=== PATIENT | female | born 1940 | race Hispanic/Latino ===

== ENCOUNTER 2023-02-27 15:24 | Inpatient (IN) | payer OTHER ==
[2023-02-27] MEDS ORDERED: Nitroglycerin 50 MG/250 ML BOT 250 ML ONE (16:07)
[2023-02-27] MEDS ORDERED: Dextrose 50% Abboject 50 ML SYRINGE SLOW IVP PRN (16:42)
[2023-02-27] MEDS ORDERED: Glucagon 1 MG/ML KIT IM PRN (16:42)
[2023-02-27] MEDS ORDERED: Dextrose 5% in Water 1,000 ML IV PRN (16:42)
[2023-02-27 17:33] LABS: Troponin I 0.032 ng/mL (< 0.028)
[2023-02-27 17:58] VITALS: BMI 38.0
[2023-02-27] MEDS: Nitroglycerin 50 MG/250 ML BOT 250 ML IVPB SCH (18:40)
[2023-02-27] MEDS: Atorvastatin Calcium 40 MG TAB PO SCH (21:40)
[2023-02-27] MEDS: Furosemide 40 MG/4 ML VIAL SLOW IVP SCH (21:40)
[2023-02-27] MEDS: Aspirin 81 mg Enteric Coated Tablet PO SCH (21:40)
[2023-02-27] MEDS: Acetaminophen 325 MG TAB PO PRN (23:30)
[2023-02-28] MEDS: Nitroglycerin 50 MG/250 ML BOT 250 ML IVPB SCH ×2 (02:06→09:18)
[2023-02-28 04:32] LABS: #Eosinphils 0.3 10x3/uL (0.0-0.5); #Monocytes 0.8 10x3/uL (0.0-1.1); #Neutrophils 5.3 10x3/uL (1.5-8.4); %Basophils 0.4 % (0.0-2.0); %Eosinophils 3.5 % (0.0-6.0); %Lymphocytes 19.7 % (18.0-47.0); %Monocytes 10.3 % (0.0-10.0); %Neutrophils 65.5 % (40.0-75.0); Hematocrit 35.1 % (34.9-44.5); Hemoglobin 11.7 g/dL (12.0-15.5); Mean Corpuscular HGB CONC 33.3 g/dL (32.0-36.0); Mean Corpuscular Hemoglobin 28.1 pg (27.0-33.0); Mean Corpuscular Volume 84.4 fl (81.6-98.3); Mean Platelet Volume 9.4 fl (7.4-10.4); Platelet Count 242 10x3/uL (150-450); Red Blood Cell (RBC) Count 4.16 10x6/uL (3.90-5.03); White Blood Cell (WBC) Count 8.1 10x3/uL (3.5-10.5)
[2023-02-28 04:42] LABS: Anion Gap 16 mmol/L (10-20); BUN (Urea Nitrogen) 21 mg/dL (9.8-20.1); Calc. Creatinine Clearance 64 mL/min (70-130); Calcium 8.6 mg/dL (7.8-10.44); Carbon Dioxide 29 mmol/L (23-31); Chloride 96 mmol/L (98-107); Estimated GFR 57; Glucose 191 mg/dL (83-110); Potassium 3.5 mmol/L (3.5-5.1); Sodium 137 mmol/L (136-145)
[2023-02-28] MEDS: Insulin Regular 300 UNITS/3 ML VIAL SC PRN ×2 (05:34→11:40)
[2023-02-28] MEDS ORDERED: metFORMIN 500 MG TAB PO SCH (08:00)
[2023-02-28] MEDS: Furosemide 40 MG/4 ML VIAL SLOW IVP SCH ×2 (08:09→21:16)
[2023-02-28] MEDS: Acetaminophen 325 MG TAB PO PRN ×2 (08:48→21:22)
[2023-02-28] MEDS ORDERED: Amlodipine 10 MG TAB PO SCH (11:30)
[2023-02-28] MEDS ORDERED: Losartan 50 MG TAB PO SCH (21:00)
[2023-02-28] MEDS: Aspirin 81 mg Enteric Coated Tablet PO SCH (21:16)
[2023-02-28] MEDS: Atorvastatin Calcium 40 MG TAB PO SCH (21:17)
[2023-02-28] MEDS: Carvedilol 25 MG TAB PO SCH (21:17)
[2023-03-01] MEDS: Furosemide 40 MG/4 ML VIAL SLOW IVP SCH (07:42)
[2023-03-01] MEDS: Carvedilol 25 MG TAB PO SCH (07:43)
[2023-03-01] MEDS ORDERED: FLU VACC QS2023(65UP)/MF59C/PF 60 MCG/0.5 ML SYRINGE IM ONE (09:00)
[2023-03-01] MEDS ORDERED: Losartan 50 MG TAB PO SCH (09:00)
[2023-03-01] MEDS ORDERED: Potassium Chloride 20 MEQ TAB PO SCH (09:00)
[2023-03-01] MEDS ORDERED: Amlodipine 10 MG TAB PO SCH (09:00)
[2023-03-01 10:08] LABS: Anion Gap 17 mmol/L (10-20); BUN (Urea Nitrogen) 23 mg/dL (9.8-20.1); Calc. Creatinine Clearance 57 mL/min (70-130); Calcium 8.8 mg/dL (7.8-10.44); Carbon Dioxide 27 mmol/L (23-31); Chloride 96 mmol/L (98-107); Estimated GFR 52; Glucose 153 mg/dL (83-110); Potassium 3.8 mmol/L (3.5-5.1); Sodium 136 mmol/L (136-145)
[2023-03-01 10:40] VITALS: BP 187/82; TEMP 98.6
[2023-03-02] MEDS ORDERED: Furosemide 40 MG TAB PO SCH (07:30)
== END 2023-03-01 15:15 | disposition home or self-care (01) | DRG 280 ==
LOC: CSHERS 15:24 → CSHIMCU 16:35
PROVIDERS: ADMIT Internal Medicine; ATTEND Internal Medicine
DX: I11.0 Hypertensive heart disease with heart failure (principal); I21.A1 Myocardial infarction type 2; I50.43 Acute on chronic combined systolic (congestive) and diastolic (congestive) heart failure; I16.1 Hypertensive emergency; E11.9 Type 2 diabetes mellitus without complications; G89.29 Other chronic pain; E66.9 Obesity, unspecified; E11.65 Type 2 diabetes mellitus with hyperglycemia; Z91.199 Patient's noncompliance with other medical treatment and regimen due to unspecified reason; I69.334 Monoplegia of upper limb following cerebral infarction affecting left non-dominant side; Z88.1 Allergy status to other antibiotic agents; Z79.899 Other long term (current) drug therapy; Z79.84 Long term (current) use of oral hypoglycemic drugs; Z68.36 Body mass index [BMI] 36.0-36.9, adult
CPT/HCPCS: 36415; 36416; 80048; 85025; 90471; 90694; 93306; 94760; G0008; J1650; J1815; J1940